=== PATIENT | female | born 1970 | race Caucasian/White ===

== ENCOUNTER 2016-12-16 23:08 | Emergency (ER) | payer OTHER ==
[2016-12-16] MEDS ORDERED: BABY ASPIRIN 81 MG CHEW PO ONE (23:31)
--- NOTE | 2016-12-16 23:37 | ERPHSYRPT ---
- History of Present Illness Time Seen by Provider: 12/16/16 23:20 Historian: patient Exam Limitations: clinical condition Patient Subjective Stated Complaint: PT STS CHEST PAIN SINCE FRIDAY. STS IT IS MUCH WORSE WITH COUGH AND MOVEMENT. PT STS RUNNY NOSE, HEAD CONGESTION. PT DENIES N/V. STS ORTHOPNEA. DENIES CARDIAC HISTORY. STS TOOK ASPIRIN X 2 PER DAY WITHOUT RELIEF. STS MID-STERNAL, NON-RADIATING. STS SHARP PAIN HURTS TO TOUCH IT. Triage Nursing Assessment: PT ALERT, ORIENTED, ANSWERS ALL QUESTIONS APPROPRIATELY. SKIN P/W/D, RESPS NON-LABORED. AMBULATORY TO TX ROOM, STEADY GAIT NOTED. SR ON MONITOR. Physician History: PATIENT COMPLAINS OF SHARP SUBSTERNAL CHEST PAINS UPON DEEP INSPIRATION AND COUGHING OVER THE PAST 3 DAYS. HAS PRODUCTIVE COUGH, PAIN UPON MOTION OF TORSO. DENIES PALPITATIONS, DYSPNEA, DIAPHORESIS, AND FEVER. Timing/Duration: day(s) Activities at Onset: none Quality: sharpness, stabbing Location: substernal Chest Pain Radiation: no radiation Severity of Pain-Max: moderate Severity of Pain-Current: moderate Modifying Factors: Improves With: coughing, movement, change in position Associated Symptoms: cough, hurts to breathe Prior Chest Pain/Cardiac Workup: no prior cardiac workup Nitro Today/Relief: no nitro taken today Aspirin Treatment Today: 81 mg x 4, provided by ED Allergies/Adverse Reactions: No Known Drug Allergies Allergy (Unverified 12/13/14 14:23) Hx Tetanus, Diphtheria Vaccination/Date Given: No Hx Influenza Vaccination/Date Given: No Hx Pneumococcal Vaccination/Date Given: No - Review of Systems Constitutional: No Fever, No Chills Eyes: No Symptoms Ears, Nose, & Throat: No Symptoms Respiratory: Cough, No Dyspnea Cardiac: Chest Pain, No Edema, No Syncope Abdominal/Gastrointestinal: No Symptoms, Appetite Changes, No Abdominal Pain, No Nausea, No Vomiting, No Diarrhea Genitourinary Symptoms: No Dysuria Musculoskeletal: No Symptoms, No Back Pain, No Neck Pain Skin: No Symptoms, No Rash Neurological: No Symptoms, No Dizziness, No Focal Weakness, No Sensory Changes Psychological: No Symptoms Endocrine: No Symptoms All Other Systems: Reviewed and Negative - Past Medical History Pertinent Past Medical History: No Neurological History: No Pertinent History ENT History: No Pertinent History Cardiac History: No Pertinent History Respiratory History: No Pertinent History Endocrine Medical History: No Pertinent History Musculoskeletal History: No Pertinent History GI Medical History: No Pertinent History History: No Pertinent History Psycho-Social History: No Pertinent History Female Reproductive Disorders: No Pertinent History - Past Surgical History Past Surgical History: Yes Neuro Surgical History: No Pertinent History Cardiac: No Pertinent History Respiratory: No Pertinent History Gastrointestinal: No Pertinent History Genitourinary: No Pertinent History Musculoskeletal: No Pertinent History Female Surgical History: Tubal Ligation - Social History Smoking Status: Current every day smoker How long have you smoked: 4 Exposure to second hand smoke: No Drug Use: none Patient Lives Alone: No - Female History Hx Last Menstrual Period: LAST MONTH - Nursing Vital Signs Temperature: 98.1 F Temperature Source: Oral Pulse Rate: 80 Respiratory Rate: 16 Pain Intensity: 10 - Physical Exam General Appearance: no apparent distress, alert Eye Exam: PERRL/EOMI, eyes nml inspection Ears, Nose, Throat Exam: normal ENT inspection, moist mucous membranes Neck Exam: normal inspection, non-tender, supple, full range of motion Respiratory Exam: normal breath sounds, chest tenderness (PARASTERNAL TENDERNESS T-3 TO T-6), lungs clear, No respiratory distress Cardiovascular Exam: regular rate/rhythm, normal heart sounds Gastrointestinal/Abdomen Exam: soft, No tenderness, No mass Back Exam: normal inspection, No CVA tenderness, No vertebral tenderness Extremity Exam: normal inspection, normal range of motion Neurologic Exam: alert, oriented x 3, cooperative, normal mood/affect, sensation nml, No motor deficits Skin Exam: normal color, warm, dry SpO2: 100 Oxygen Delivery: Room Air - Course EKG Interpreted by Me: RATE, Sinus Rhythm, NORMAL AXIS, Non-specific ST Changes - CT Exams Chest CT Interpretation: Tele-radiologist Report (no pulmonary embolism) Ordered Tests: Active Orders 24 hr Category Date Time Status EKG-ER Only STAT Care 12/16/16 23:31 Active IV Insertion STAT Care 12/16/16 23:31 Active Oxygen-ED Only NASAL CANNULA 2 lpm Care 12/16/16 23:31 Active CHEST WITH CONTRAST [CT] Stat Exams 12/17/16 00:03 Taken BLOOD CULTURE Stat Lab 12/17/16 00:25 Received CBC W DIFF Stat Lab 12/16/16 23:36 Completed CMP Stat Lab 12/16/16 23:36 Completed D-DIMER QUANTITATION Stat Lab 12/16/16 23:36 Completed MAGNESIUM Stat Lab 12/16/16 23:36 Completed TROPONIN Q3H Lab 12/16/16 23:36 Completed TROPONIN Q3H Lab 12/17/16 02:45 Ordered TROPONIN Q3H Lab 12/17/16 05:45 Ordered TROPONIN Q3H Lab 12/17/16 08:45 Ordered TROPONIN Q3H Lab 12/17/16 11:45 Ordered Respiratory Nebulizer STAT RT 12/17/16 00:05 Active Medication Summary Generic Name Dose Route Start Last Admin Trade Name Freq PRN Reason Stop Dose Admin Acetaminophen/Hydrocodone Bitart 2 tab 12/17/16 02:01 [place] 10/325 Mg Tablet PO 12/17/16 02:02 SENT HOME W/ PATIENT ONE Sodium Chloride 1,000 mls @ 100 mls/hr 12/16/16 23:45 12/16/16 23:42 Sodium Chloride 0.9% 1000 Ml IV 01/15/17 23:44 100 mls/hr .Q10H DREA Administration Discontinued Medications Generic Name Dose Route Start Last Admin Trade Name Freq PRN Reason Stop Dose Admin Albuterol/Ipratropium 3 ml 12/17/16 00:05 12/17/16 00:15 Duoneb 0.5-3 Mg/3 Ml Neb IH 12/17/16 00:06 3 ml STAT ONE Administration Albuterol/Ipratropium Confirm 12/17/16 00:14 Duoneb 0.5-3 Mg/3 Ml Neb Administered 12/17/16 00:15 Dose 3 ml IH .STK-MED ONE Aspirin 324 mg 12/16/16 23:31 12/16/16 23:41 Baby Aspirin 81 Mg Chew PO 12/16/16 23:32 324 mg STAT ONE Administration Aspirin Confirm 12/16/16 23:39 Baby Aspirin 81 Mg Chew Administered 12/16/16 23:40 Dose 324 mg .ROUTE .STK-MED ONE Ceftriaxone Sodium/Dextrose 50 mls @ 100 mls/hr 12/17/16 00:04 12/17/16 00:26 Rocephin 1 Gm-D5w 50 Ml Bag IV 12/17/16 00:33 100 mls/hr STAT ONE Administration Ceftriaxone Sodium/Dextrose Confirm 12/17/16 00:18 Rocephin 1 Gm-D5w 50 Ml Bag Administered 12/17/16 00:19 Dose 50 mls @ ud IV .STK-MED ONE Ketorolac Tromethamine 30 mg 12/17/16 01:41 12/17/16 01:48 Toradol 30 Mg Injection IV 12/17/16 01:42 30 mg STAT ONE Administration Ketorolac Tromethamine Confirm 12/17/16 01:46 Toradol 30 Mg Injection Administered 12/17/16 01:47 Dose 30 mg .ROUTE .STK-MED ONE Lab/Rad Data: Laboratory Result Diagrams 12/16/16 23:36 12/16/16 23:36 Laboratory Results 12/16/16 12/16/16 12/16/16 Range/Units 23:36 23:36 23:36 WBC (4.0-10.5) K/mm3 RBC (4.1-5.4) M/mm3 Hgb (12.0-16.0) gm/dl Hct (35-47) % MCV (78-100) fl MCH (26-32) pg MCHC (32-36) g/dl RDW (11.5-14.0) % Plt Count (150-450) K/mm3 MPV (6-9.5) fl Gran % (36.0-66.0) % Lymphocytes % (24.0-44.0) % Monocytes % (0.0-12.0) % Eosinophils % (0.00-5.0) % Basophils % (0.0-0.4) % Basophils # (0-0.4) D-Dimer 0.729 H* (0.00-0.49) mg/L Sodium 136 (136-145) mEq/L Potassium 4.0 (3.5-5.1) mEq/L Chloride 101 (98-107) mEq/L Carbon Dioxide 26.8 (21-32) mEq/L Anion Gap 12.1 (5-15) MEQ/L BUN 6 L (9-20) mg/dL Creatinine 0.91 (0.55-1.30) mg/dl Estimated GFR > 60 ML/MIN Glucose 97 (70-110) MG/DL Calcium 8.1 L (8.5-10.1) mg/dL Magnesium 1.9 (1.8-2.4) mg/dL Total Bilirubin 0.2 (0.2-1.0) mg/dL AST 23 (15-37) U/L ALT 21 (12-78) U/L Alkaline Phosphatase 46 (46-116) U/L Troponin I < 0.017 (0.000-0.056) ng/ml Serum Total Protein 7.0 (6.4-8.2) gm/dL Albumin 3.5 (3.4-5.0) g/dL 12/16/16 Range/Units 23:36 WBC 4.3 (4.0-10.5) K/mm3 RBC 4.17 (4.1-5.4) M/mm3 Hgb 12.4 (12.0-16.0) gm/dl Hct 37.5 (35-47) % MCV 89.9 (78-100) fl MCH 29.7 (26-32) pg MCHC 33.1 (32-36) g/dl RDW 14.0 (11.5-14.0) % Plt Count 149 L (150-450) K/mm3 MPV 11.6 H (6-9.5) fl Gran % 56.8 (36.0-66.0) % Lymphocytes % 27.0 (24.0-44.0) % Monocytes % 15.5 H (0.0-12.0) % Eosinophils % 0.5 (0.00-5.0) % Basophils % 0.2 (0.0-0.4) % Basophils # 0.01 (0-0.4) D-Dimer (0.00-0.49) mg/L Sodium (136-145) mEq/L Potassium (3.5-5.1) mEq/L Chloride (98-107) mEq/L Carbon Dioxide (21-32) mEq/L Anion Gap (5-15) MEQ/L BUN (9-20) mg/dL Creatinine (0.55-1.30) mg/dl Estimated GFR ML/MIN Glucose (70-110) MG/DL Calcium (8.5-10.1) mg/dL Magnesium (1.8-2.4) mg/dL Total Bilirubin (0.2-1.0) mg/dL AST (15-37) U/L ALT (12-78) U/L Alkaline Phosphatase (46-116) U/L Troponin I (0.000-0.056) ng/ml Serum Total Protein (6.4-8.2) gm/dL Albumin (3.4-5.0) g/dL - Progress Progress: improved Progress Note: 12/17/16 01:55 PATIENT ADMINISTERED IV NORMAL SALINE 100MG/HR, 4 BABY ASA ORALLY, DUONEB AEROSOL, ANTIBIOTIC ROCEPHIN 1GM IVPB, TORADOL 30MG IV Blood Culture(s) Obtained: Yes Antibiotics given: Yes (rocephin 1gm IVPB) Counseled pt/family regarding: diagnosis, rad results, smoking cessation - Departure Time of Disposition: 02:10 Departure Disposition: Home Clinical Impression: ACUTE BRONCHITIS, PLEURISY Condition: Stable Critical Care Time: No Referrals: MIKA MCKENNA [Primary Care Provider] - Additional Instructions: TORADOL 10MG EVERY 6 HOURS FOR MILD TO MODERATE PAIN. NORCO 10/325 EVERY 4 HOURS FOR SEVERE PAIN. ANTIBIOTIC CEFUROXIME 250MG TWICE DAILY FOR 10 DAYS. TAKE OVER THE COUNTER COUGH SYRUP EVERY 4 HOURS NEEDED[ Prescriptions: Hydrocodone/APAP 10/325 mg [[place] 10/325 MG Tablet] 1 tab PO Q4H PRN PRN # 15 tablet PRN Reason: Severe Pain Ketorolac Tromethamine [Toradol] 10 mg PO Q6HPRN PRN #20 tablet PRN Reason: Mild To Moderate Pain Cefuroxime Axetil [Cefuroxime] 250 mg PO BID #20 tablet
[2016-12-16] MEDS ORDERED: BABY ASPIRIN 81 MG CHEW ONE (23:39)
[2016-12-16 23:40] LABS: BASOPHIL % 0.2 % (0.0-0.4); Eosinophil % 0.5 % (0.00-5.0); Granulocytes % 56.8 % (36.0-66.0); Mean Cell Volume 89.9 fl (78-100); Mean Corpuscular Hemoglobin 29.7 pg (26-32); Mean Platelet Volume 11.6 fl (6-9.5); Monocytes % 15.5 % (0.0-12.0); Platelet Count 149 K/mm3 (150-450); Red Blood Count 4.17 M/mm3 (4.1-5.4); White Blood Count 4.3 K/mm3 (4.0-10.5)
[2016-12-16] MEDS ORDERED: Sodium Chloride 0.9% 1000 ML 1,000 ML ONE (23:40)
[2016-12-16] MEDS ORDERED: Sodium Chloride 0.9% 1000 ML 1,000 ML IV SCH (23:45)
[2016-12-16 23:59] LABS: ALBUMIN 3.5 g/dL (3.4-5.0); ALKALINE PHOSPHATASE 46 U/L (46-116); ANION GAP 12.1 MEQ/L (5-15); BILIRUBIN,TOTAL 0.2 mg/dL (0.2-1.0); BLOOD UREA NITROGEN 6 mg/dL (9-20); CHLORIDE 101 mEq/L (98-107); Carbon Dioxide 26.8 mEq/L (21-32); Glucose 97 MG/DL (70-110); MAGNESIUM 1.9 mg/dL (1.8-2.4); SGOT/AST 23 U/L (15-37); SGPT/ALT 21 U/L (12-78); SODIUM 136 mEq/L (136-145)
[2016-12-17] MEDS ORDERED: ROCEPHIN 1 Gm-D5w 50 ml Bag** 50 ML IV ONE ×2 (00:04→00:18)
[2016-12-17] MEDS ORDERED: DUONEB 0.5-3 MG/3 ml Neb IH ONE ×2 (00:05→00:14)
[2016-12-17] MEDS ORDERED: TORAdol 30 mg Injection IV ONE (01:41)
[2016-12-17] MEDS ORDERED: TORAdol 30 mg Injection ONE (01:46)
[2016-12-17] MEDS ORDERED: Norco 10/325 MG Tablet PO ONE (02:01)
[2016-12-17] MEDS ORDERED: Norco 10/325 MG Tablet ONE (02:05)
[2016-12-17 02:20] VITALS: BP 102/67; PULSE 67; O2SAT 97
--- NOTE | 2016-12-17 09:18 | XRAY ---
Indication: Cough, congestion, short of breath. Elevated d-dimer. Multiple contiguous axial images obtained through the chest using 80 cc Isovue 370 contrast and PE protocol. Comparison: None There is satisfactory opacification of the pulmonary arteries. No filling defect or pulmonary embolus. Heart is not enlarged. Aorta is normal in course and caliber. No pathologic mediastinal/hilar lymphadenopathy. Small hiatal hernia. Examination of the lung parenchyma demonstrates minimal bibasilar dependent atelectasis. Minimal peripheral fibrosis/scarring in both upper lobes. No suspicious pulmonary mass, infiltrate, consolidation, or effusion. Bony thorax intact. Limited upper abdomen including adrenal glands are unremarkable. Impression: 1. Negative for pulmonary embolus. No acute cardiopulmonary abnormalities. 2. Small hiatal hernia. Comment: Preliminary interpretation was made by [facility]. No critical discrepancy. CT DI 10.00
== END 2016-12-17 02:21 | disposition home or self-care (01) ==
LOC: ED 23:08
DX: J20.9 Acute bronchitis, unspecified (principal); R09.1 Pleurisy; R07.89 Other chest pain; R05 Cough
CPT/HCPCS: 36000; 36415; 71260; 80053; 83735; 84484; 85025; 85379; 87040; 93005; 94640; 96360; 96361; 96365; 96374; 99284; J0696; J1885; A9270-GY

== ENCOUNTER 2022-09-23 21:35 | Emergency (ER) | payer OTHER ==
[2022-09-23] MEDS ORDERED: TORAdol 30 mg Injection IM ONE (22:31)
--- NOTE | 2022-09-23 22:31 | ERPHSYRPT ---
- History of Present Illness Source: patient Exam Limitations: other (Poor historian) Patient Subjective Stated Complaint: pt states she has been having pain in her lt foot since yesterday. Triage Nursing Assessment: pt alert and oriented, answers questions approp. pt refusing to take off anything other than her coat and lt shoe. pt ambulatory with limping gait noted. respirations nonlabored, skin warm and dry. redness and some swelling to lt great toe. pt reports tenderness to lt great toe. Physician History: 51 yo wf cc of base of L great toe pain x 2 days. Pt denies trauma, and pain is 10 on scale. She denies trauma, fever, and h/o gout. Pain is worse w weight bearing. Method of Injury: unknown Occurred: days ago (2 days) Quality: constant Severity of Pain-Max: severe Severity of Pain-Current: severe Lower Extremities Pain: 1st toe: left (Base of L great toe) Modifying Factors: Improves With: movement Associated Symptoms: none Allergies/Adverse Reactions: No Known Drug Allergies Allergy (Verified 09/23/22 22:26) Hx Tetanus, Diphtheria Vaccination/Date Given: Yes Hx Influenza Vaccination/Date Given: No Hx Pneumococcal Vaccination/Date Given: No Immunizations Up to Date: Yes Travel Risk - International Travel Have you traveled outside of the country in past 3 weeks: No - Coronavirus Screening Are you exhibiting any of the following symptoms?: No Close contact with a COVID-19 positive Pt in past 14-21 Days: No - Vaccine Status Have you recieved a Covid-19 vaccination: Yes Post Form Remover: Unknown - Vaccination Dates Dates if Unknown: - Review of Systems Constitutional: No Symptoms Eyes: No Symptoms Ears, Nose, & Throat: No Symptoms Respiratory: No Symptoms Cardiac: No Symptoms Abdominal/Gastrointestinal: No Symptoms Genitourinary Symptoms: No Symptoms Skin: No Symptoms Neurological: No Symptoms Psychological: No Symptoms Endocrine: No Symptoms Hematologic/Lymphatic: No Symptoms Immunological/Allergic: No Symptoms - Past Medical History Pertinent Past Medical History: No Neurological History: No Pertinent History ENT History: No Pertinent History Cardiac History: No Pertinent History Respiratory History: No Pertinent History Endocrine Medical History: No Pertinent History Musculoskeletal History: No Pertinent History GI Medical History: No Pertinent History History: No Pertinent History Psycho-Social History: No Pertinent History Female Reproductive Disorders: No Pertinent History - Past Surgical History Past Surgical History: Yes Neuro Surgical History: No Pertinent History Cardiac: No Pertinent History Respiratory: No Pertinent History Gastrointestinal: No Pertinent History Genitourinary: No Pertinent History Musculoskeletal: No Pertinent History Female Surgical History: Tubal Ligation Other Surgical History: denies - Social History Smoking Status: Current every day smoker How long have you smoked: yrs Exposure to second hand smoke: No Drug Use: none Patient Lives Alone: Yes - Nursing Vital Signs Nursing Vital Signs: Initial Vital Signs Temperature 98.1 F 09/23/22 22:12 Pulse Rate 81 09/23/22 22:12 Respiratory Rate 16 09/23/22 22:12 Blood Pressure 121/81 09/23/22 22:12 O2 Sat by Pulse Oximetry 99 09/23/22 22:12 Pain Scale Pain Intensity [] 10 Pain Intensity 5 WNL - Physical Exam General Appearance: no apparent distress Eyes, Ears, Nose, Throat Exam: normal ENT inspection, TMs normal, pharynx normal, moist mucous membranes Neck Exam: normal inspection, non-tender, supple, full range of motion, No Brudzinski, No Kernig's, No meningismus, No carotid bruit Cardiovascular/Respiratory Exam: normal breath sounds, regular rate/rhythm, heart sounds normal Gastrointestinal/Abdominal Exam: non-tender, soft Back Exam: normal inspection, No vertebral tenderness Hips Exam: bilateral: non-tender, normal inspection, normal range of motion, no evidence of injury Legs Exam: bilateral leg: non-tender, normal inspection, normal range of motion, no evidence of injury Knees Exam: bilateral knee: non-tender, normal inspection, normal range of motion, no evidence of injury Ankle Exam: bilateral ankle: non-tender, normal inspection, normal range of motion, no evidence of injury Foot Exam: left foot: pain (TTP base of L great toe/minimal edema/No erythema/Good pedal pulse, distal sensation, and capillary return) Neuro/Tendon Exam: normal sensation, normal motor functions, normal tendon functions, responds to pain, no evidence tendon injury Mental Status Exam: alert, oriented x 3, cooperative Skin Exam: warm, dry SpO2 Interpretation: normal SpO2: 99 O2 Delivery: Room Air - Course Nursing assessment & vital signs reviewed: Yes - Radiology Exams Foot X-ray Interpretation: Interpreted by me (L foot neg per ER read) Ordered Tests: Active Orders 24 hr Category Date Time Status FOOT (MINIMUM 3 VIEWS) Stat Exams 09/23/22 22:25 Taken Uric Acid Stat Lab 09/23/22 22:35 Completed Medication Summary Discontinued Medications Generic Name Dose Route Start Last Admin Trade Name Simona PRN Reason Stop Dose Admin Ketorolac Tromethamine 30 mg 09/23/22 22:31 09/23/22 22:54 Ketorolac Tromethamine 30 Mg/Ml Inj IM 09/23/22 22:32 30 mg STAT ONE Administration Ketorolac Tromethamine Confirm 09/23/22 22:52 Ketorolac Tromethamine 30 Mg/Ml Inj Administered 09/23/22 22:53 Dose 30 mg .ROUTE .STK-MED ONE Lab/Rad Data: Laboratory Results 09/23/22 Range/Units 22:35 Uric Acid 3.6 (2.6-6.0) mg/dL - Progress Progress Note: 09/23/22 23:41 30mg IM Toradol w improvement in pain Nursing note and vital signs reviewed Labs/XR results reviewed and shared w pt Even though pt has a normal uric acid, gout is the most likely diagnosis based on history and physical examination 09/23/22 23:44 Counseled pt/family regarding: lab results, diagnosis, need for follow-up, rad results - Departure Departure Disposition: Home Clinical Impression: Gout Condition: Stable Critical Care Time: No Referrals: DOCTOR,NO FAMILY [Primary Care Provider] - Follow up/PCP as directed Instructions: Gout (DC) Additional Instructions: Prednisone twice a day for 3 days Indocin as needed for pain Follow up with your family MD in 2-3 days Return to ER for increasing pain or temperature greater than 100.5 Prescriptions: Prednisone 10 mg [Deltasone 10 mg] 10 mg PO BID 3 Days #6 tablet Indomethacin 25 mg [Indocin 25 MG] 50 mg PO TID PRN PRN #15 cap PRN Reason: Pain
[2022-09-23] MEDS ORDERED: TORAdol 30 mg Injection ONE (22:52)
[2022-09-24 00:02] VITALS: BP 112/69; PULSE 67
[2022-09-24 00:16] VITALS: O2SAT 99
--- NOTE | 2022-09-24 08:53 | XRAY ---
Indication: Pain. No known injury. Comparison: None 3 nonweightbearing views left foot obtained. No bony, articular, or soft tissue abnormalities.
== END 2022-09-24 00:03 | disposition home or self-care (01) ==
LOC: ED 21:35
DX: M10.9 Gout, unspecified (principal); M79.675 Pain in left toe(s); Z79.52 Long term (current) use of systemic steroids; Z72.0 Tobacco use
CPT/HCPCS: 36415; 73630; 84550; 96372; 99283; J1885

== ENCOUNTER 2023-09-28 15:09 | Emergency (ER) | payer OTHER ==
[2023-09-28 15:24] VITALS: PULSE 82; TEMP 98.5; O2SAT 98
[2023-09-28] MEDS ORDERED: TYLENOL 325 MG PO ONE (16:09)
[2023-09-28] MEDS ORDERED: TORAdol 30 mg Injection IM ONE (16:09)
--- NOTE | 2023-09-28 16:12 | ERPHSYRPT ---
- History of Present Illness Time Seen by Provider: 09/28/23 16:10 Patient Subjective Stated Complaint: pt states that she was shoveling a dirt/coal dust pile 3 days ago and she woke up the next day with her lower back hurting and her head Triage Nursing Assessment: Pt brought self to the ER, vitals wnl, rates pain as 10/10, states that she would rather have a baby, lower back pain and the front of her head hurts, pulses normal, skin n/w/d, no difficulty with breathing, hasn't taken anything for the pain because "I don't have anything at home", doesn't appear to be in any distress Physician History: pt states that she was shoveling a dirt/coal dust pile 3 days ago and she woke up the next day with her lower back hurting and her head Severity: moderate Associated Symptoms: denies symptoms Allergies/Adverse Reactions: No Known Drug Allergies Allergy (Verified 09/28/23 15:24) Hx Tetanus, Diphtheria Vaccination/Date Given: Yes Hx Influenza Vaccination/Date Given: No Hx Pneumococcal Vaccination/Date Given: No Travel Risk - International Travel Have you traveled outside of the country in past 3 weeks: No - Coronavirus Screening Are you exhibiting any of the following symptoms?: No Close contact with a COVID-19 positive Pt in past 14-21 Days: No - Vaccine Status Have you recieved a Covid-19 vaccination: Yes 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 - Vaccination Dates Dates if Unknown: - Review of Systems Constitutional: Malaise, No Fever, No Chills Eyes: No Symptoms Ears, Nose, & Throat: No Symptoms Respiratory: No Cough, No Dyspnea Cardiac: No Chest Pain, No Edema, No Syncope Abdominal/Gastrointestinal: No Abdominal Pain, No Nausea, No Vomiting, No Diarrhea Genitourinary Symptoms: No Dysuria Musculoskeletal: Back Pain, No Neck Pain Skin: No Rash Neurological: Headache, No Dizziness, No Focal Weakness, No Sensory Changes Psychological: No Symptoms Endocrine: No Symptoms All Other Systems: Reviewed and Negative - Past Medical History Pertinent Past Medical History: No Neurological History: No Pertinent History ENT History: No Pertinent History Cardiac History: No Pertinent History Respiratory History: No Pertinent History Endocrine Medical History: No Pertinent History Musculoskeletal History: No Pertinent History GI Medical History: No Pertinent History History: No Pertinent History Psycho-Social History: No Pertinent History Female Reproductive Disorders: No Pertinent History - Past Surgical History Past Surgical History: Yes Neuro Surgical History: No Pertinent History Cardiac: No Pertinent History Respiratory: No Pertinent History Gastrointestinal: No Pertinent History Genitourinary: No Pertinent History Musculoskeletal: No Pertinent History Female Surgical History: Tubal Ligation Other Surgical History: . - Social History Smoking Status: Current every day smoker How long have you smoked: yrs Exposure to second hand smoke: Yes Drug Use: none Patient Lives Alone: Yes - Nursing Vital Signs Nursing Vital Signs: Initial Vital Signs Temperature 98.5 F 09/28/23 15:15 Pulse Rate 82 09/28/23 15:15 Blood Pressure 105/63 09/28/23 15:15 O2 Sat by Pulse Oximetry 98 09/28/23 15:15 Pain Scale Pain Intensity [] 10 Pain Intensity 10 - Physical Exam General Appearance: no apparent distress, alert Eye Exam: PERRL/EOMI, eyes nml inspection Ears, Nose, Throat Exam: normal ENT inspection, TMs normal, pharynx normal, moist mucous membranes Neck Exam: normal inspection, non-tender, supple, full range of motion Respiratory Exam: normal breath sounds, lungs clear, No respiratory distress Cardiovascular Exam: regular rate/rhythm, normal heart sounds, normal peripheral pulses Gastrointestinal/Abdomen Exam: soft, normal bowel sounds, No tenderness, No mass Back Exam: normal inspection, normal range of motion, No CVA tenderness, No vertebral tenderness Extremity Exam: normal inspection, normal range of motion, pelvis stable Neurologic Exam: alert, oriented x 3, cooperative, normal mood/affect, nml cerebellar function, nml station & gait, sensation nml, No motor deficits Skin Exam: normal color, warm, dry, No rash Lymphatic Exam: No adenopathy SpO2: 98 - Course Nursing assessment & vital signs reviewed: Yes - Radiology Exams L-Spine X-ray Interpretation: Reviewed by me, Negative, No Fracture Ordered Tests: Active Orders 24 hr Category Date Time Status LUMBAR COMPLETE (MIN 4 VIEWS) Stat Exams 09/28/23 16:46 Taken UA W/RFX UR CULTURE Stat Lab 09/28/23 16:09 Ordered Medication Summary Discontinued Medications Generic Name Dose Route Start Last Admin Trade Name Freq PRN Reason Stop Dose Admin Acetaminophen 975 mg 09/28/23 16:09 09/28/23 17:17 Acetaminophen 325 Mg Tablet PO 09/28/23 16:10 975 mg STAT ONE Administration Acetaminophen Confirm 09/28/23 17:15 Acetaminophen 325 Mg Tablet Administered 09/28/23 17:16 Dose 975 mg .ROUTE .STK-MED ONE Ketorolac Tromethamine 60 mg 09/28/23 16:09 09/28/23 17:17 Ketorolac Tromethamine 30 Mg/Ml Inj IM 09/28/23 16:10 60 mg STAT ONE Administration Ketorolac Tromethamine Confirm 09/28/23 17:15 Ketorolac Tromethamine 30 Mg/Ml Inj Administered 09/28/23 17:16 Dose 60 mg .ROUTE .STK-MED ONE - Progress Progress: improved, pain not gone completely Counseled pt/family regarding: lab results, diagnosis, need for follow-up, rad results Medical Desision Making - Diagnostic Testing Diagnostic test were ordered, analyzed, and reviewed by me: Yes Radiological Interpretation: Reviewed by me - Risk of complications Minimal Risk: Minimal risk of morbidity - Departure Departure Disposition: Home Clinical Impression: Lumbalgia Qualifiers: Chronicity: acute Back pain laterality: bilateral Sciatica presence: without sciatica Qualified Code(s): M54.50 - Low back pain, unspecified Condition: Stable Critical Care Time: No Referrals: DOCTOR,NO FAMILY [Primary Care Provider] - Follow up/PCP as directed Instructions: Low Back Pain (DC) Additional Instructions: Discharge/Care Plan ROSIELILIANA DOUGLAS was seen on 09/28/23 in the Emergency Room. The patient was counseled regarding Diagnosis,Lab results, Imaging studies, need for follow up and when to return to the Emergency Room. Prescriptions given: Discharge Note I have spoken with the patient and/or caregivers. I have explained the patient's condition, diagnosis and treatment plan based on the information available to me at this time. I have answered the patient's and/or caregiver's questions and addressed any concerns. The patient and/or caregivers have as good understanding of the patient's diagnosis, condition and treatment plan as can be expected at this point. The vital signs have been stable. The patient's condition is stable and appropriate for discharge from the emergency department. The patient will pursue further outpatient evaluation with the primary care physician or other designated or consulting physician as outlined in the discharge instructions. The patient and/or caregivers are agreeable to this plan of care and follow-up instructions have been explained in detail. The patient and/or caregivers have received these instruction. The patient/and or caregivers are aware that any significant change in condition or worsening of symptoms should prompt an immediate return to this or the closest emergency department or call 911. LILIANA VELEZ was seen on 09/28/23 n the Emergency Room. At that time you were treated for an emergent condition, during your visit Laboratory, Radiology and/or other procedures may have been ordered. It is very important that you follow-up with your Primary Care Physician NO FAMILY DOCTOR within the next 24- 48 hours to review your Emergency Room visit and the final results of testing that was ordered. Some test results such as Urine Cultures, Blood Cultures, and other cultures if ordered will not be finalized for 24-48 hours. If you do not have a Primary Care Provider please call the medical records depa rtment at [phone] to obtain a copy of your results or you may sign into our patient portal to obtain these results by visiting us @ [email or web address] and completing the following steps: 1. Click on the Patient Portal link 2. Click the Patient Self Enrollment Link to complete the enrollment form and entering your 3. Once the enrollment form is completed you will receive an email with a temporary ID and password at the email address you provided. 4. Next choose a user name and password. Your user name must be at least 4 characters long and your password must be at least 4 characters long. 5. Choose a security question from the list and provide your answer to the question. If you already have signed into the Health Portal you may access your Health Care Information 17/03 by the following steps: 1. Login to our website @ [email or web address] 2. Enter your original user name and password. FAQS The [facility] Health Portal is an online tool that contains your Lab Results, Radiology Reports, Visit History, Discharge Instructions and Health Summary Lab and Radiology Results will not be available for 72 hours on the portal. The Portal is a secure site, passwords are encryted and URLs are re-written so they cannot be copied and pasted. You and authorized family members are the only ones who can access your Portal. Also there is a timeout feature that protects your information if you leave the Portal page open. If you have technical difficulty please use the Contact Us link on the page this will allow you to submit any questions you have regarding the Portal or you may contact the Medical Record Department at [phone]. BACK INJURY 1. May apply moist heat frequently for relief of pain. Take care not to burn the skin. Do not use heat for more than 30 minutes at a time. 2. Try to sleep on a firm bed, flat on your back. 3. If no improvement is noticed in 2-3 days, follow up with your family physician. 4. If you notice any numbness, tingling, weakness, or problems with your bowel or bladder, you should call your family physician or return to the emergency department. Prescriptions: Naproxen 500 mg [Naprosyn 500 MG] 500 mg PO BIDAC #30 tablet
[2023-09-28] MEDS ORDERED: TYLENOL 325 MG ONE (17:15)
[2023-09-28] MEDS ORDERED: TORAdol 30 mg Injection ONE (17:15)
[2023-09-28 17:22] VITALS: BP 105/76
--- NOTE | 2023-09-28 18:50 | XRAY ---
Indication: Low back pain. Comparison: None 5 view lumbar spine demonstrates 5 lumbar segments in normal alignment with vertebral body heights/disc spaces maintained. Mild diffuse colonic fecal debris. No other bony, articular, or soft tissue abnormalities.
== END 2023-09-28 17:39 | disposition home or self-care (01) ==
LOC: ED 15:09
DX: M54.50 Low back pain, unspecified (principal); R51.9 Headache, unspecified; Z72.0 Tobacco use
CPT/HCPCS: 72110; 96372; 99283; J1885; A9270-GY